=== PATIENT | male | born 1975 | race Caucasian/White ===

== ENCOUNTER 2022-05-30 12:24 | Outpatient (RCR) | payer OTHER | END 2022-06-29 | LOC: PT 12:24 | PROVIDERS: ATTEND Neurological Surgery | DX: M51.16 Intervertebral disc disorders with radiculopathy, lumbar region (principal) ==

== ENCOUNTER 2025-07-27 05:45 | Observation (INO) | payer OTHER ==
[2025-07-25 09:18] LABS: BASOPHILS % 1.3 % (0.0-1.0); EOSINOPHILS % 1.4 % (0.0-6.0); LYMPHOCYTES % 19.1 % (18.0-39.1); MONOCYTES % 6.0 % (4.4-11.3); NEUTROPHILS % 71.9 % (38.7-80.0); RED CELL DISTRIBUTION WIDTH 12.4 % (11.7-14.4)
[2025-07-25 09:42] LABS: EST GLOMERULAR FILTRATION RATE 91.0 ML/MIN (>=60)
[2025-07-25 09:59] LABS: INR 0.91
[~2025-07-27 05:45] MED LIST: AMLODIPINE BESY10 MG PO; ASPIRIN81 MG PO; ATORVASTATIN CA20 MG PO; CARVEDILOL3.125 MG PO; JARDIANCE10 MG PO; METFORMIN HCL500 MG PO
[2025-07-27] MEDS: CEFAZOLIN SODIUM 2 GM ONE (06:49)
[2025-07-27] MEDS: LACTATED RINGER'S 1,000 ML ONE (06:50)
[2025-07-27] MEDS ORDERED: ACETAMINOPHEN 1000 MG/100 ML 100 ML IV ONE (07:14)
[2025-07-27] MEDS ORDERED: FENTANYL CITRATE/PF 100MCG/2 ML INJ ONE (07:14)
[2025-07-27] MEDS ORDERED: MIDAZOLAM HCL 2 MG/2 ML VIAL ONE (07:14)
[2025-07-27] MEDS ORDERED: PROPOFOL IV EMULSION 10 MG/ML 20 ML VIAL ONE ×2 (07:14→09:32)
[2025-07-27] MEDS ORDERED: SODIUM CHLORIDE 0.9% 100 ML ONE (07:14)
[2025-07-27] MEDS ORDERED: LIDOCAINE HCL 2% LOCAL INJ 5 ML SDV VIAL INJ ONE (07:14)
[2025-07-27] MEDS ORDERED: SEVOFLURANE INHAL SOLN 250 ML PEN BTL ONE (07:14)
[2025-07-27] MEDS ORDERED: ROCURONIUM BROMIDE 1 ML IV ONE ×2 (07:14→08:45)
[2025-07-27] MEDS ORDERED: KETAMINE HCL INJ 50 MG/ML 10 ML VIAL ONE (07:15)
[2025-07-27] MEDS ORDERED: DEXMEDETOMIDINE HCL 2 ML ONE (07:15)
[2025-07-27] MEDS ORDERED: DEXAMETHASONE SOD PHOS INJ 4 MG/ML SDV ONE (08:27)
[2025-07-27] MEDS ORDERED: ONDANSETRON HCL INJ 2MG/ML 2ML 2 MG/ML VIAL ONE (08:27)
[2025-07-27] MEDS ORDERED: SUGAMMADEX SODIUM 200 MG/2 ML VIAL IV ONE (08:36)
[2025-07-27] MEDS ORDERED: HYDROCODON-ACE1 EA12 PO (09:58)
[2025-07-27] MEDS ORDERED: OXYCODONE/ACETAMINOPHEN 5-325 1 EACH TABLET PO PRN (10:00)
[2025-07-27] MEDS ORDERED: Morphine 10mg syringe 10 MG/ML INJ IM PRN (10:00)
[2025-07-27] MEDS ORDERED: MAGNESIUM/ALUMINUM/SIMETHICONE 30 ML UDC PO PRN (10:00)
[2025-07-27] MEDS ORDERED: CEPACOL SORE THROAT LOZENGES PO PRN (10:00)
[2025-07-27] MEDS ORDERED: PROMETHAZINE HCL (IM) 25 MG/ML VIAL IM PRN (10:00)
[2025-07-27] MEDS: HYDROMORPHONE 2MG/ML IV PRN (11:54)
[2025-07-27] MEDS: LACTATED RINGER'S 1,000 ML IV SCH (12:06)
[2025-07-27] MEDS ORDERED: LACTATED RINGER'S 1,000 ML ONE (12:36)
[2025-07-27 12:43] VITALS: BP 119/73; PULSE 66; RESP 17; TEMP 97.3; O2SAT 98
[2025-07-27 13:06] VITALS: BP 135/81; PULSE 76; RESP 18; TEMP 97.3; O2SAT 96
[2025-07-27] MEDS: ONDANSETRON HCL INJ 2MG/ML 2ML 2 MG/ML VIAL IV PRN (16:09)
[2025-07-27 16:34] VITALS: BP 158/91; PULSE 80; RESP 18; TEMP 97.7; O2SAT 97
[2025-07-27] MEDS: ACETAMINOPHEN 325 MG TAB PO PRN (17:00)
[2025-07-27 20:00] VITALS: BP 160/86; PULSE 89; RESP 18; TEMP 97.8; O2SAT 98
[2025-07-27] MEDS: ZOLPIDEM TARTRATE 5 MG TAB PO PRN (21:07)
[2025-07-27 22:45] VITALS: BP 160/86; PULSE 89; RESP 18; TEMP 97.8; O2SAT 98
[2025-07-28 04:33] VITALS: BP 131/71; PULSE 68; RESP 16; TEMP 97.9; O2SAT 99
[2025-07-28] MEDS: ATORVASTATIN 20 MG TAB PO SCH (07:54)
[2025-07-28] MEDS: CARVEDILOL 3.125 MG TAB PO SCH (07:55)
[2025-07-28] MEDS: AMLODIPINE BESYLATE 10 MG TAB PO SCH (07:56)
[2025-07-28] MEDS: EMPAGLIFLOZIN 10 MG TABLET PO SCH (07:57)
[2025-07-28 08:04] VITALS: BP 143/85; PULSE 65; RESP 16; TEMP 97.6; O2SAT 100
[2025-07-28] MEDS: CARISOPRODOL 350 MG TAB PO PRN (10:31)
== END 2025-07-28 10:45 | disposition home or self-care (01) ==
LOC: OR 05:45 → PACU V 09:57 → MED/SURG2 10:45
PROVIDERS: ADMIT Neurological Surgery; ATTEND Neurological Surgery
DX: M48.062 Spinal stenosis, lumbar region with neurogenic claudication (principal); E11.9 Type 2 diabetes mellitus without complications; I25.10 Atherosclerotic heart disease of native coronary artery without angina pectoris; I10 Essential (primary) hypertension; E78.5 Hyperlipidemia, unspecified; Z95.5 Presence of coronary angioplasty implant and graft; Z79.84 Long term (current) use of oral hypoglycemic drugs; Z01.810 Encounter for preprocedural cardiovascular examination; Z01.812 Encounter for preprocedural laboratory examination; Z01.818 Encounter for other preprocedural examination
CPT/HCPCS: 36415 ×2; 63047; 63048; 71046; 72020; 80048; 82948; 85025; 85610; 85730; 86850; 86900; 88304; 88311; 93005; G0378 ×2; J0131; J0690 ×2; J1100; J1171 ×2; J2003; J2250; J2405; J2704; J3010; J7050; J7121